=== PATIENT | male | born 1950 | race Hispanic/Latino ===

== ENCOUNTER 2020-07-15 01:16 | Inpatient (IN) | payer OTHER ==
[2020-07-15] VITALS (14 sets, daily range): BP systolic 104–150; BP diastolic 53–93
[~2020-07-15] VITALS: Ht 157.5 cm; Wt 72.9 kg
[2020-07-15 05:55] LABS: HEMATOCRIT 23.6 % (42-54); LYMPHOCYTES % (AUTO) 36.6 % (21.0-51.0); MEAN CORPUSCULAR HEMOGLOBIN 27.7 pg (27.0-33.0); MEAN CORPUSCULAR HGB CONC 31.8 g/dL (32.0-36.0); MEAN CORPUSCULAR VOLUME 87.1 fL (79-99); MONOCYTES % (AUTO) 7.2 % (3.0-13.0); NEUTROPHILS % (AUTO) 55.6 % (40.0-77.0); PLATELET COUNT (AUTO) 105 K/uL (130-400); RED BLOOD CELL COUNT(AUTO) 2.71 MIL/uL (4.50-6.20); WHITE BLOOD COUNT (AUTO) 3.6 K/uL (4.8-10.8)
[2020-07-15 06:08] LABS: INR 1.09 (0.85-1.15); PROTHROMBIN TIME 11.8 SEC (9.6-11.6)
[2020-07-15 06:09] LABS: PARTIAL THROMBOPLASTIN TIME 27.4 SEC (26.3-35.5)
[2020-07-15 06:21] LABS: CREATININE 0.8 mg/dL (0.5-1.5); POTASSIUM 4.4 mmol/L (3.5-5.1); T4 (THYROXINE) 8.2 ug/dL (4.7-13.3); THYROID STIMULATING HORMONE 2.36 uIU/mL (0.36-3.74)
[2020-07-15] MEDS ORDERED: HEPARIN SODIUM 1000UNIT/ML 10ML VIAL ONE (07:29)
[2020-07-15] MEDS ORDERED: IOHEXOL-350 50ML VIAL IV ONE (07:29)
[2020-07-15] MEDS ORDERED: LIDOCAINE HCL 2% 20ML ONE (07:29)
[2020-07-15] MEDS ORDERED: NITROGLYCERIN 2 MG/VIAL VIAL IV ONE (07:29)
[2020-07-15] MEDS ORDERED: IOHEXOL 350 MG/ML 100ML INFUS..BTL IV ONE (07:29)
[2020-07-15] MEDS ORDERED: MIDAZOLAM HCL 1 MG/ML 2ML VIAL ONE (07:56)
[2020-07-15] MEDS ORDERED: ONDANSETRON HCL 4 MG/2 ML VIAL IVP PRN (08:30)
[2020-07-15] MEDS ORDERED: ACETAMINOPHEN 325 MG TAB PO PRN (08:30)
[2020-07-15] MEDS: ISOSORBIDE MONO 30MG TAB SR PO SCH (10:53)
[2020-07-15] MEDS: METOPROLOL TARTRATE 25 MG TAB PO SCH ×2 (10:53→21:31)
[2020-07-15] MEDS: ASPIRIN 81MG TAB.CHEW PO SCH (10:53)
[2020-07-15] MEDS: FAMOTIDINE 20MG TAB 20 MG TAB PO SCH ×2 (10:53→21:32)
[2020-07-15] MEDS: ATORVASTATIN CALCIUM 40 MG TABLET PO SCH (10:53)
[2020-07-15] MEDS ORDERED: SIME80TA11 PO (11:09)
[2020-07-15] MEDS ORDERED: ALPR0.5T8 PO (11:09)
[2020-07-15] MEDS ORDERED: IBUP-2784 PO (11:09)
[2020-07-15] MEDS ORDERED: HYDR-4060 PO (11:09)
[2020-07-15] MEDS ORDERED: FOLI0.4T6 PO (11:09)
[2020-07-15] MEDS ORDERED: ONDA8TAB12 PO (11:09)
[2020-07-15] MEDS ORDERED: ACET-66 PO (11:09)
[2020-07-15 12:10] LABS: ABG BASE EXCESS -2.3 mmol/L (-2.0-3.0); ABG HCO3 20.3 mmol/L (21.0-28.0); ABG OXYGEN SATURATION 97.9 % (95.0-99.0); ABG PCO2 30 mmHg (35-48)
[2020-07-15] MEDS ORDERED: PHENYLEPHRINE HCL 10 MG/ML 1ML VIAL IV ONE (12:18)
[2020-07-15] MEDS ORDERED: HEPARIN SODIUM 1000UNIT/ML 10ML VIAL IV ONE (12:18)
[2020-07-15] MEDS: ENOXAPARIN SODIUM 60 MG/0.6 ML SQ SCH ×2 (14:08→21:00)
[2020-07-15 14:56] LABS: HEMATOCRIT 22.2 % (42-54); MEAN CORPUSCULAR HEMOGLOBIN 27.4 pg (27.0-33.0); MEAN CORPUSCULAR VOLUME 85.7 fL (79-99); PLATELET COUNT (AUTO) 75 K/uL (130-400); RED BLOOD CELL COUNT(AUTO) 2.59 MIL/uL (4.50-6.20); RED CELL DISTRIBUTION WIDTH 16.1 % (11.0-15.5); WHITE BLOOD COUNT (AUTO) 2.6 K/uL (4.8-10.8)
[2020-07-15 15:03] LABS: CREATININE 0.8 mg/dL (0.5-1.5); POTASSIUM 4.3 mmol/L (3.5-5.1)
[2020-07-15 15:08] LABS: ALBUMIN 2.5 g/dL (3.5-5.0); BILIRUBIN,TOTAL 0.5 mg/dL (0.2-1.0); INR 1.08 (0.85-1.15); PROTHROMBIN TIME 11.7 SEC (9.6-11.6); TOTAL PROTEIN, SERUM 6.3 g/dL (6.0-8.3)
[2020-07-15 15:09] LABS: PARTIAL THROMBOPLASTIN TIME 24.8 SEC (26.3-35.5)
[2020-07-15 15:25] LABS: LYMPHOCYTES % (MANUAL) 31 % (22-44); MAN.DIFF COMMENT-IMPRESSION MANUAL DIFFERENTIAL; MONOCYTES % (MANUAL) 8 % (2-9); REACTIVE LYMPHOCYTES 2 % (0-0); SEGMENTED NEUTROPHILS % 59 % (40-70)
[2020-07-15] MEDS ORDERED: AMINOCAPROIC ACID 15,000 MG in SODIUM CHLORIDE 0.9% 500ML 420 ML IV PRN (15:45)
[2020-07-15] MEDS ORDERED: EPINEPHRINE 10 MG in SODIUM CHLORIDE 0.9% 240 ML IV PRN (15:45)
[2020-07-15] MEDS ORDERED: NITROGLYCERIN 50 MG/D5% WATER 250 BOT IV PRN (15:45)
[2020-07-15] MEDS ORDERED: NOREPINEPHRINE BITARTRATE 8 MG in DEXTROSE 5%-WATER 250 ML IV PRN (15:45)
[2020-07-15] MEDS ORDERED: TRAMADOL HCL 50 MG TABLET PO PRN ×3 (19:30)
[2020-07-16] VITALS (38 sets, daily range): BP systolic 57–183; BP diastolic 34–108
[2020-07-16 04:12] LABS: BASOPHILS % (AUTO) 0.4 % (0.0-5.0); LYMPHOCYTES % (AUTO) 37.1 % (21.0-51.0); MEAN CORPUSCULAR HEMOGLOBIN 27.5 pg (27.0-33.0); MEAN CORPUSCULAR HGB CONC 32.4 g/dL (32.0-36.0); NEUTROPHILS % (AUTO) 51.1 % (40.0-77.0); PLATELET COUNT (AUTO) 65 K/uL (130-400); RED CELL DISTRIBUTION WIDTH 15.7 % (11.0-15.5); WHITE BLOOD COUNT (AUTO) 2.7 K/uL (4.8-10.8)
[2020-07-16 04:16] LABS: HEMATOCRIT 20.4 % (42-54)
[2020-07-16 04:39] LABS: CREATININE 0.7 mg/dL (0.5-1.5); POTASSIUM 3.8 mmol/L (3.5-5.1)
[2020-07-16] MEDS: ISOSORBIDE MONO 30MG TAB SR PO SCH (09:00)
[2020-07-16] MEDS: FAMOTIDINE 20MG TAB 20 MG TAB PO SCH (09:00)
[2020-07-16] MEDS ORDERED: METOPROLOL TARTRATE 25 MG TAB PO SCH (09:00)
[2020-07-16] MEDS: ASPIRIN 81MG TAB.CHEW PO SCH (09:00)
[2020-07-16] MEDS: ATORVASTATIN CALCIUM 40 MG TABLET PO SCH (09:00)
[2020-07-16] MEDS ORDERED: ENOXAPARIN SODIUM 40 MG/0.4 ML SYRINGE SQ SCH (09:00)
[2020-07-16] MEDS ORDERED: PAPAVERINE HCL 30 MG/ML 2ML VIAL ONE (12:37)
[2020-07-16] MEDS ORDERED: CEFAZOLIN SODIUM 1 GM VIAL ONE (12:37)
[2020-07-16 12:59] LABS: HEMATOCRIT 31.7 % (42-54)
[2020-07-16] MEDS ORDERED: CEFAZOLIN SODIUM 1 GM VIAL IVP ONE ×2 (15:00)
[2020-07-16] MEDS ORDERED: HEPARIN SODIUM 1000UNIT/ML 10ML VIAL ONE (15:25)
[2020-07-16] MEDS ORDERED: AMINOCAPROIC ACID 250 MG/ML 20 ML VIAL ONE (15:25)
[2020-07-16] MEDS ORDERED: EPINEPHRINE 1 MG/ML AMPULE ONE (15:25)
[2020-07-16] MEDS ORDERED: LIDOCAINE PF 2% 5ML ABBOJECT ONE (15:25)
[2020-07-16] MEDS ORDERED: SODIUM BICARB 50MEQ 50ML VIAL 150 ML ONE (15:25)
[2020-07-16] MEDS ORDERED: ESMOLOL HCL 10 MG/ML 10 ML VIAL ONE (15:25)
[2020-07-16] MEDS ORDERED: NOREPINEPHRINE BITARTRATE 1 MG/1 ML ML IV ONE (15:25)
[2020-07-16] MEDS ORDERED: PROPOFOL 10 MG/ML 20ML VIAL IV ONE (15:26)
[2020-07-16] MEDS ORDERED: FENTANYL CITRATE PF 50 MCG/1 ML 20ML VIAL IJ ONE (15:26)
[2020-07-16] MEDS ORDERED: ROCURONIUM 10MG/1ML SYR 10 MG/ML ML ONE (15:26)
[2020-07-16] MEDS ORDERED: ETOMIDATE 2 MG/ML 10 ML VIAL ONE (15:27)
[2020-07-16] MEDS ORDERED: AMIODARONE HCL 50 MG/ML 3 ML VIAL ONE (15:30)
[2020-07-16] MEDS ORDERED: MAGNESIUM SULFATE 1 GM/2 ML VIAL ONE (15:53)
[2020-07-16] MEDS ORDERED: AMIODARONE HCL 900 MG in DEXTROSE 5%-WATER 500 ML IV PRN (16:30)
[2020-07-16] MEDS ORDERED: POTASSIUM CHLORIDE 20MEQ/100ML 300 ML IV ONE (16:32)
[2020-07-16] MEDS ORDERED: PROTAMINE SULFATE 10 MG/ML 25ML VIAL IV ONE (17:46)
[2020-07-16] MEDS ORDERED: SODIUM BICARB 50MEQ 50ML VIAL 200 ML ONE (17:47)
[2020-07-16] MEDS ORDERED: MORPHINE SULFATE 2 MG/ML 1ML SYG IV PRN (18:00)
[2020-07-16] MEDS ORDERED: ACETAMINOPHEN 325 MG TAB PO PRN (18:00)
[2020-07-16] MEDS ORDERED: MORPHINE SULFATE 4 MG/1ML SYG IV PRN (18:00)
[2020-07-16] MEDS ORDERED: ONDANSETRON HCL 4 MG/2 ML VIAL IV PRN (18:00)
[2020-07-16] MEDS ORDERED: NOREPINEPHRINE 4MG/NS 250ML 250 ML IV PRN (18:00)
[2020-07-16] MEDS ORDERED: NITROGLYCERIN 50 MG/D5% WATER 250 BOT IV SCH (18:00)
[2020-07-16] MEDS ORDERED: SODIUM CHLORIDE 0.9% 10 ML VIAL IVP PRN (18:00)
[2020-07-16] MEDS ORDERED: GLUCAGON 1MG KIT 1 MG ML IM PRN (18:00)
[2020-07-16] MEDS ORDERED: EPINEPHRINE 10 MG in DEXTROSE 5%-WATER 250 ML IV PRN (18:00)
[2020-07-16] MEDS ORDERED: POTASSIUM PHOS 15 mMOL+NS250ML 250 ML IV PRN (18:00)
[2020-07-16] MEDS ORDERED: ACETAMINOPHEN 650 MG SUPPOSITORY RC PRN (18:00)
[2020-07-16] MEDS ORDERED: DEXTROSE 50%-WATER 50 ML DISP.SYRIN IV PRN (18:00)
[2020-07-16] MEDS ORDERED: SODIUM CHLORIDE 0.9% 500ML 500 ML IV SCH (18:00)
[2020-07-16] MEDS ORDERED: PROPOFOL 1000 MG/100 ML 100 ML IV PRN (18:00)
[2020-07-16] MEDS ORDERED: SODIUM CHLORIDE 0.9% 1000ML 1,000 ML IV SCH (18:00)
[2020-07-16] MEDS ORDERED: INSULIN REGULAR, HUMAN 3ML 100 UNIT in SODIUM CHLORIDE 0.9% 99 ML IV SCH ×2 (18:00)
[2020-07-16] MEDS ORDERED: TRAMADOL HCL 50 MG TABLET PO PRN (18:00)
[2020-07-16] MEDS ORDERED: ALBUMIN (HUMAN) 5% 250 ML IV PRN (18:00)
[2020-07-16] MEDS ORDERED: AMINOCAPROIC ACID 15,000 MG in SODIUM CHLORIDE 0.9% 250 ML IV SCH (18:00)
[2020-07-16 18:12] LABS: ABG BASE EXCESS 4.6 mmol/L (-2.0-3.0); ABG PCO2 57 mmHg (35-48)
[2020-07-16 18:12] LABS: ABG BASE EXCESS 0.2 mmol/L (-2.0-3.0); ABG HCO3 25.6 mmol/L (21.0-28.0); ABG PCO2 45 mmHg (35-48)
[2020-07-16 18:12] LABS: ABG BASE EXCESS -7.4 mmol/L (-2.0-3.0); ABG HCO3 18.7 mmol/L (21.0-28.0); ABG OXYGEN SATURATION 98.9 % (95.0-99.0); ABG PCO2 40 mmHg (35-48)
[2020-07-16] MEDS ORDERED: ASPIRIN 81MG TAB.CHEW PO SCH (18:30)
[2020-07-16 19:03] LABS: HEMATOCRIT 22.2 % (42-54); MEAN CORPUSCULAR HEMOGLOBIN 29.3 pg (27.0-33.0); MEAN CORPUSCULAR HGB CONC 34.7 g/dL (32.0-36.0); MEAN CORPUSCULAR VOLUME 84.4 fL (79-99); RED BLOOD CELL COUNT(AUTO) 2.63 MIL/uL (4.50-6.20); WHITE BLOOD COUNT (AUTO) 7.3 K/uL (4.8-10.8)
[2020-07-16 19:17] LABS: CREATININE 0.7 mg/dL (0.5-1.5); MAGNESIUM 1.6 mg/dL (1.80-2.40); PHOSPHORUS 4.2 mg/dL (2.5-4.9); POTASSIUM 4.3 mmol/L (3.5-5.1)
[2020-07-16 19:34] LABS: ABG BASE EXCESS -1.6 mmol/L (-2.0-3.0); ABG HCO3 22.7 mmol/L (21.0-28.0); ABG OXYGEN SATURATION 98.8 % (95.0-99.0); ABG PCO2 36 mmHg (35-48)
[2020-07-16 19:38] LABS: ABG OXYGEN SATURATION 99.6 % (95.0-99.0); HCO3,VENOUS BLOOD GAS 20.9 (21.0-28.0); PCO2,VENOUS BLOOD GAS 34 (35-48); PH,VENOUS BLOOD GAS 7.407 (7.350-7.450)
[2020-07-16 20:30] LABS: INR 1.35 (0.85-1.15); PROTHROMBIN TIME 14.3 SEC (9.6-11.6)
[2020-07-16 20:31] LABS: PARTIAL THROMBOPLASTIN TIME 26.3 SEC (26.3-35.5)
[2020-07-16] MEDS: FAMOTIDINE/PF 20 MG/2 ML VIAL IV SCH (20:44)
[2020-07-16] MEDS: MAGNESIUM 2GM PREMIX 50ML 50 ML IV PRN (21:12)
[2020-07-16 21:16] LABS: ABG BASE EXCESS -5.3 mmol/L (-2.0-3.0); ABG HCO3 18.2 mmol/L (21.0-28.0); ABG OXYGEN SATURATION 98.3 % (95.0-99.0); ABG PCO2 28 mmHg (35-48)
[2020-07-16] MEDS: SODIUM BICARB 50MEQ 50ML VIAL IV PRN ×2 (21:35→21:37)
[2020-07-16] MEDS: CEFAZOLIN SODIUM 1 GM VIAL IV SCH (22:09)
[2020-07-16 22:35] LABS: ABG BASE EXCESS -0.6 mmol/L (-2.0-3.0); ABG HCO3 21.8 mmol/L (21.0-28.0); ABG OXYGEN SATURATION 98.1 % (95.0-99.0); ABG PCO2 28 mmHg (35-48)
[2020-07-16 23:36] LABS: ABG BASE EXCESS 0.7 mmol/L (-2.0-3.0); ABG HCO3 23.4 mmol/L (21.0-28.0); ABG OXYGEN SATURATION 97.9 % (95.0-99.0); ABG PCO2 30 mmHg (35-48)
[2020-07-16] MEDS: CALCIUM GLUCONATE 1 GM in SODIUM CHLORIDE 0.9% 50 ML IV PRN (23:45)
[2020-07-16] MEDS: POTASSIUM CHLORIDE 20MEQ/100ML 100 ML IV PRN (23:49)
[2020-07-17] VITALS (35 sets, daily range): BP systolic 92–159; BP diastolic 49–85
[2020-07-17] MEDS ORDERED: ALBUMIN (HUMAN) 5% 250 ML IV ONE (00:03)
[2020-07-17 01:03] LABS: HEMATOCRIT 18.5 % (42-54)
[2020-07-17 01:27] LABS: POTASSIUM 3.4 mmol/L (3.5-5.1)
[2020-07-17] MEDS: POTASSIUM CHLORIDE 20MEQ/100ML 100 ML IV PRN ×3 (01:36→08:08)
[2020-07-17 02:20] LABS: ABG BASE EXCESS 0.1 mmol/L (-2.0-3.0); ABG HCO3 22.3 mmol/L (21.0-28.0); ABG OXYGEN SATURATION 98.1 % (95.0-99.0); ABG PCO2 26 mmHg (35-48)
[2020-07-17 02:20] LABS: ABG BASE EXCESS -0.1 mmol/L (-2.0-3.0); ABG HCO3 22.8 mmol/L (21.0-28.0); ABG PCO2 29 mmHg (35-48)
[2020-07-17 03:48] LABS: ABG BASE EXCESS 0.8 mmol/L (-2.0-3.0); ABG HCO3 23.4 mmol/L (21.0-28.0); ABG OXYGEN SATURATION 98.3 % (95.0-99.0); ABG PCO2 29 mmHg (35-48)
[2020-07-17 04:45] LABS: HEMATOCRIT 21.5 % (42-54); LYMPHOCYTES % (AUTO) 14.4 % (21.0-51.0); MEAN CORPUSCULAR HGB CONC 34.9 g/dL (32.0-36.0); MONOCYTES % (AUTO) 8.8 % (3.0-13.0); NEUTROPHILS % (AUTO) 76.8 % (40.0-77.0); PLATELET COUNT (AUTO) 29 K/uL (130-400); RED BLOOD CELL COUNT(AUTO) 2.59 MIL/uL (4.50-6.20); RED CELL DISTRIBUTION WIDTH 14.6 % (11.0-15.5); WHITE BLOOD COUNT (AUTO) 3.4 K/uL (4.8-10.8)
[2020-07-17] MEDS: CALCIUM GLUCONATE 1 GM in SODIUM CHLORIDE 0.9% 50 ML IV PRN (04:45)
[2020-07-17 04:58] LABS: INR 1.27 (0.85-1.15); PROTHROMBIN TIME 13.5 SEC (9.6-11.6)
[2020-07-17 04:59] LABS: CREATININE 0.8 mg/dL (0.5-1.5); MAGNESIUM 1.7 mg/dL (1.80-2.40); PARTIAL THROMBOPLASTIN TIME 26.8 SEC (26.3-35.5); PHOSPHORUS 2.4 mg/dL (2.5-4.9); POTASSIUM 3.8 mmol/L (3.5-5.1)
[2020-07-17] MEDS: ATORVASTATIN CALCIUM 40 MG TABLET PO SCH (08:08)
[2020-07-17] MEDS: TRAMADOL HCL 50 MG TABLET PO PRN ×2 (08:08→15:42)
[2020-07-17] MEDS: MAGNESIUM 2GM PREMIX 50ML 50 ML IV PRN (08:08)
[2020-07-17] MEDS: AMIODARONE HCL 200 MG TABLET PO SCH ×2 (08:08→20:04)
[2020-07-17] MEDS: CEFAZOLIN SODIUM 1 GM VIAL IV SCH ×2 (08:09→15:42)
[2020-07-17] MEDS: FAMOTIDINE/PF 20 MG/2 ML VIAL IV SCH ×2 (08:10→20:04)
[2020-07-17] MEDS ORDERED: ASPIRIN 325MG EC TAB 325 MG TABLET.DR PO SCH (09:00)
[2020-07-17] MEDS: ASPIRIN 81MG TAB.CHEW PO SCH (10:34)
[2020-07-17 16:25] LABS: HEMATOCRIT 22.5 % (42-54)
[2020-07-18] VITALS (19 sets, daily range): BP systolic 111–157; BP diastolic 64–89
[2020-07-18] MEDS: TRAMADOL HCL 50 MG TABLET PO PRN (03:21)
[2020-07-18 04:29] LABS: MEAN CORPUSCULAR HEMOGLOBIN 28.2 pg (27.0-33.0); MEAN CORPUSCULAR HGB CONC 33.2 g/dL (32.0-36.0); MEAN CORPUSCULAR VOLUME 84.9 fL (79-99); RED BLOOD CELL COUNT(AUTO) 2.45 MIL/uL (4.50-6.20); RED CELL DISTRIBUTION WIDTH 15.1 % (11.0-15.5); WHITE BLOOD COUNT (AUTO) 3.5 K/uL (4.8-10.8)
[2020-07-18 04:38] LABS: CREATININE 0.7 mg/dL (0.5-1.5); POTASSIUM 3.7 mmol/L (3.5-5.1)
[2020-07-18 04:40] LABS: HEMATOCRIT 20.8 % (42-54)
[2020-07-18] MEDS: FUROSEMIDE 20 MG TABLET PO SCH (08:03)
[2020-07-18] MEDS: METOPROLOL TARTRATE 25 MG TAB PO SCH ×2 (08:03→20:46)
[2020-07-18] MEDS: FAMOTIDINE 20MG TAB 20 MG TAB PO SCH ×2 (08:03→20:46)
[2020-07-18] MEDS: AMIODARONE HCL 200 MG TABLET PO SCH ×2 (08:03→20:46)
[2020-07-18] MEDS: ATORVASTATIN CALCIUM 40 MG TABLET PO SCH (08:03)
[2020-07-18] MEDS: ASPIRIN 81MG TAB.CHEW PO SCH (08:03)
[2020-07-18 11:07] LABS: HEMATOCRIT 26.3 % (42-54); MEAN CORPUSCULAR HEMOGLOBIN 28.4 pg (27.0-33.0); MEAN CORPUSCULAR HGB CONC 33.1 g/dL (32.0-36.0); MEAN CORPUSCULAR VOLUME 85.9 fL (79-99); RED BLOOD CELL COUNT(AUTO) 3.06 MIL/uL (4.50-6.20); RED CELL DISTRIBUTION WIDTH 14.8 % (11.0-15.5); WHITE BLOOD COUNT (AUTO) 6.2 K/uL (4.8-10.8)
[2020-07-18] MEDS: INSULIN HUMULIN R 100 UNIT/ML 3ML SQ SCH ×2 (16:30→20:47)
[2020-07-19 04:00] VITALS: BP 130/78
[2020-07-19] MEDS: INSULIN HUMULIN R 100 UNIT/ML 3ML SQ SCH ×4 (05:22→21:00)
[2020-07-19 06:03] LABS: HEMATOCRIT 23.2 % (42-54); MEAN CORPUSCULAR HEMOGLOBIN 28.7 pg (27.0-33.0); MEAN CORPUSCULAR HGB CONC 33.6 g/dL (32.0-36.0); MEAN CORPUSCULAR VOLUME 85.3 fL (79-99); PLATELET COUNT (AUTO) 49 K/uL (130-400); RED BLOOD CELL COUNT(AUTO) 2.72 MIL/uL (4.50-6.20); RED CELL DISTRIBUTION WIDTH 14.6 % (11.0-15.5); WHITE BLOOD COUNT (AUTO) 2.9 K/uL (4.8-10.8)
[2020-07-19 06:17] LABS: CREATININE 0.7 mg/dL (0.5-1.5); POTASSIUM 3.5 mmol/L (3.5-5.1)
[2020-07-19 06:46] VITALS: BP 128/74
[2020-07-19] MEDS: ASPIRIN 81MG TAB.CHEW PO SCH (07:06)
[2020-07-19] MEDS: ATORVASTATIN CALCIUM 40 MG TABLET PO SCH (07:06)
[2020-07-19] MEDS: AMIODARONE HCL 200 MG TABLET PO SCH ×2 (07:06→21:42)
[2020-07-19] MEDS: METOPROLOL TARTRATE 25 MG TAB PO SCH ×2 (07:06→21:42)
[2020-07-19] MEDS: FAMOTIDINE 20MG TAB 20 MG TAB PO SCH ×2 (07:06→21:42)
[2020-07-19] MEDS: FUROSEMIDE 20 MG TABLET PO SCH (07:06)
[2020-07-19 08:52] LABS: BAND NEUTROPHILS % (MANUAL) 1 % (0-2); LYMPHOCYTES % (MANUAL) 19 % (22-44); MAN.DIFF COMMENT-IMPRESSION MANUAL DIFFERENTIAL; MONOCYTES % (MANUAL) 5 % (2-9); SEGMENTED NEUTROPHILS % 75 % (40-70)
[2020-07-19 08:54] LABS: PLATELET MORPHOLOGY COMMENT DECREASED
[2020-07-19 10:59] VITALS: BP 107/67
[2020-07-19 16:00] VITALS: BP 127/81
[2020-07-19 20:00] VITALS: BP 109/65
[2020-07-19] MEDS: TRAMADOL HCL 50 MG TABLET PO PRN (23:52)
[2020-07-20 00:04] VITALS: BP 125/72
[2020-07-20 03:59] VITALS: BP 105/66
[2020-07-20 04:04] LABS: HEMATOCRIT 21.2 % (42-54); MEAN CORPUSCULAR HEMOGLOBIN 29.2 pg (27.0-33.0); MEAN CORPUSCULAR HGB CONC 34.4 g/dL (32.0-36.0); MEAN CORPUSCULAR VOLUME 84.8 fL (79-99); RED BLOOD CELL COUNT(AUTO) 2.5 MIL/uL (4.50-6.20); RED CELL DISTRIBUTION WIDTH 14.6 % (11.0-15.5); WHITE BLOOD COUNT (AUTO) 2.3 K/uL (4.8-10.8)
[2020-07-20 04:16] LABS: CREATININE 0.8 mg/dL (0.5-1.5); POTASSIUM 3.1 mmol/L (3.5-5.1)
[2020-07-20] MEDS: INSULIN HUMULIN R 100 UNIT/ML 3ML SQ SCH ×3 (05:37→16:30)
[2020-07-20 07:00] VITALS: BP 128/70
[2020-07-20] MEDS ORDERED: LOSARTAN 25 MG TABLET PO SCH (09:00)
[2020-07-20] MEDS: ATORVASTATIN CALCIUM 40 MG TABLET PO SCH (10:13)
[2020-07-20] MEDS: FAMOTIDINE 20MG TAB 20 MG TAB PO SCH ×2 (10:13→22:05)
[2020-07-20] MEDS: METOPROLOL TARTRATE 25 MG TAB PO SCH ×2 (10:13→22:05)
[2020-07-20] MEDS: AMIODARONE HCL 200 MG TABLET PO SCH ×2 (10:13→22:05)
[2020-07-20] MEDS: FUROSEMIDE 20 MG TABLET PO SCH (10:14)
[2020-07-20] MEDS: ASPIRIN 81MG TAB.CHEW PO SCH (10:14)
[2020-07-20 11:00] VITALS: BP 103/63
[2020-07-20 15:00] VITALS: BP 101/60
[2020-07-20 19:32] VITALS: BP 125/67
[2020-07-20] MEDS ORDERED: ASPI-1005 PO (20:18)
[2020-07-20] MEDS ORDERED: LOSA25TA2 PO (20:18)
[2020-07-20] MEDS ORDERED: AMIO200T44 PO (20:18)
[2020-07-20] MEDS ORDERED: ATOR40TA69 PO (20:18)
[2020-07-20] MEDS ORDERED: METO25 PO (20:18)
[2020-07-20] MEDS ORDERED: FURO20TA6 PO (20:18)
== END 2020-07-20 22:15 | disposition home or self-care (01) | DRG 233 ==
LOC: 4BH 04:46 → 2CH 07-16 15:34 → 4CH 07-18 16:19
PROVIDERS: ADMIT Hospitalist; ATTEND Hospitalist
PROC: B2111ZZ Fluoroscopy of Multiple Coronary Arteries using Low Osmolar Contrast (ICD-10-PCS; 2020-07-15)
PROC: B2151ZZ Fluoroscopy of Left Heart using Low Osmolar Contrast (ICD-10-PCS; 2020-07-15)
PROC: 4A023N7 Measurement of Cardiac Sampling and Pressure, Left Heart, Percutaneous Approach (ICD-10-PCS; 2020-07-15)
PROC: 06BQ4ZZ Excision of Left Saphenous Vein, Percutaneous Endoscopic Approach (ICD-10-PCS; 2020-07-16)
PROC: 06BP4ZZ Excision of Right Saphenous Vein, Percutaneous Endoscopic Approach (ICD-10-PCS; 2020-07-16)
PROC: 0PH000Z Insertion of Rigid Plate Internal Fixation Device into Sternum, Open Approach (ICD-10-PCS; 2020-07-16)
PROC: 30233R1 Transfusion of Nonautologous Platelets into Peripheral Vein, Percutaneous Approach (ICD-10-PCS; 2020-07-16)
PROC: 30233N1 Transfusion of Nonautologous Red Blood Cells into Peripheral Vein, Percutaneous Approach (ICD-10-PCS; 2020-07-16)
PROC: 02100Z9 Bypass Coronary Artery, One Artery from Left Internal Mammary, Open Approach (ICD-10-PCS; principal; 2020-07-16 12:00)
PROC: 021109W Bypass Coronary Artery, Two Arteries from Aorta with Autologous Venous Tissue, Open Approach (ICD-10-PCS; 2020-07-16 12:00)
DX: I21.4 Non-ST elevation (NSTEMI) myocardial infarction (principal); J95.1 Acute pulmonary insufficiency following thoracic surgery; C34.90 Malignant neoplasm of unspecified part of unspecified bronchus or lung; I25.10 Atherosclerotic heart disease of native coronary artery without angina pectoris; I48.91 Unspecified atrial fibrillation; D64.9 Anemia, unspecified; D69.6 Thrombocytopenia, unspecified; K29.70 Gastritis, unspecified, without bleeding; E78.00 Pure hypercholesterolemia, unspecified; E78.5 Hyperlipidemia, unspecified; I25.2 Old myocardial infarction; Z79.82 Long term (current) use of aspirin; Z79.899 Other long term (current) drug therapy; Z80.1 Family history of malignant neoplasm of trachea, bronchus and lung; Z82.49 Family history of ischemic heart disease and other diseases of the circulatory system; Z87.891 Personal history of nicotine dependence
CPT/HCPCS: 36415; 36430; 36600; 71045; 80048; 80053; 80061; 82435; 82803; 82947; 82948; 83605; 83735; 84100; 84132; 84295; 84436; 84443; 84484; 85014; 85018; 85025; 85027; 85610; 85730; 86850; 86900; 86901; 86922; 86923; 93005; 93306; 93356; 93458; 93880; 94002; 94003; 94010; 94150; 97039; 99156; 99157; A4357; A7048; C1760; C1769; C1894; G0378; J0171; J0282; J0610; J0690; J1644; J1650; J1815; J2001; J2250; J2370; J2440; J2704; J2720; J3010; J3475; J3480; J3490; J7030; J7040; J7060; J7120; P9016; P9034; P9045; Q9967